=== PATIENT | female | born 1960 | race African-American/Black ===

== ENCOUNTER 2016-12-23 15:34 | Emergency (ER) | payer MEDICAID ==
[~2016-12-23] VITALS: Ht 154.9 cm; Wt 55.0 kg
[~2016-12-23 15:34] MED LIST: ALPR0.5T96 PO; AMLO2.5T45 PO; Aspirin PO; Benazepril Hcl PO; Folic Acid PO; Multivitamins,Ther W-Minerals PO; Thiamine Hcl PO
[2016-12-23] MEDS ORDERED: KETOROLAC 60MG/2ML VIAL IM ONE (18:30)
[2016-12-23 20:35] VITALS: BP 139/77
== END 2016-12-23 21:05 | disposition home or self-care (01) ==
LOC: ER 15:35
DX: S09.90XA Unspecified injury of head, initial encounter (principal); I10 Essential (primary) hypertension; Z86.73 Personal history of transient ischemic attack (TIA), and cerebral infarction without residual deficits; W01.0XXA Fall on same level from slipping, tripping and stumbling without subsequent striking against object, initial encounter; Y93.89 Activity, other specified; Y92.488 Other paved roadways as the place of occurrence of the external cause
CPT/HCPCS: 96372; 99283; J1885; Z7610

== ENCOUNTER 2017-04-10 14:57 | Inpatient (IN) | payer MEDICAID ==
[~2017-04-10] VITALS: Ht 160 cm; Wt 60.3 kg
[2017-04-10] MEDS ORDERED: SODIUM CHLORIDE 0.9% 1,000 ML IV ONE (15:15)
[2017-04-10 15:43] LABS: CHLORIDE 105 mEq/L (98-107)
[2017-04-10 15:45] LABS: BASOPHILS % 0.5 % (0.0-2.0); EOSINOPHILS % 1.6 % (0.0-5.0); HEMOGLOBIN. 11.1 g/dL (12.0-16.0); LYMPHOCYTES % 36.3 % (20.0-50.0); MEAN CORPUSCULAR HEMOGLOBIN 27.6 pg (28.0-32.0); MEAN CORPUSCULAR VOLUME 81.7 fL (81.0-99.0); MEAN PLATELET VOLUME 7.8 fl (7.4-10.4); MONOCYTES % 7.8 % (2.0-8.0); NEUTROPHILS % 53.8 % (40.0-76.0); PLATELET 219 x1000/uL (130-400); RED BLOOD CELL COUNT 4.04 mill/uL (4.2-5.4); RED CELL DISTRIBUTION WIDTH 13.9 % (11.6-14.6)
[2017-04-10 15:46] LABS: INR 1.1; PARTIAL THROMBOPLASTIN TIME 27.1 sec (24.0-34.0); PROTHROMBIN TIME 11.4 sec
[2017-04-10 15:55] LABS: CARBON DIOXIDE 32 mEq/L (21-32); CREATINE KINASE MB FRACTION 3.7 ng/mL (0.5-3.6); TROPONIN I 0.09 ng/mL (0.00-0.04)
[2017-04-10] MEDS ORDERED: POTASSIUM CHLORIDE 20MEQ TABLET SR PO ONE (16:15)
[2017-04-10] MEDS ORDERED: ASPIRIN 81MG TABLET PO ONE (20:30)
[2017-04-10] MEDS ORDERED: HYDROCODONE/ACETAMINOPHEN 5/325MG TABLET PO ONE (20:45)
[2017-04-10 22:30] VITALS: BP 97/62
[2017-04-11] VITALS (7 sets, daily range): BP systolic 84–132; BP diastolic 49–80
[2017-04-11] MEDS: HYDROCODONE/ACETAMINOPHEN 5/325MG TABLET PO PRN ×3 (04:16→17:17)
[2017-04-11] MEDS: ALPRAZOLAM 0.5 MG TABLET PO PRN ×2 (04:21→14:15)
[2017-04-11] MEDS: MULTIVITAMINS,THER W-MINERALS TABLET PO SCH (08:49)
[2017-04-11] MEDS: BENAZEPRIL 20MG TABLET PO SCH (08:49)
[2017-04-11] MEDS ORDERED: [UNRECOGNIZED DRUG - OTHER] PO SCH (09:00)
[2017-04-11] MEDS ORDERED: [UNRECOGNIZED DRUG - OTHER] PO SCH (09:00)
[2017-04-11] MEDS: CLOTRIMAZOLE 1% VAGINAL CREAM 45GM VG SCH (21:13)
[2017-04-12] VITALS (7 sets, daily range): BP systolic 100–149; BP diastolic 52–89
[2017-04-12] MEDS: ALPRAZOLAM 0.5 MG TABLET PO PRN ×2 (00:46→10:16)
[2017-04-12] MEDS: HYDROCODONE/ACETAMINOPHEN 5/325MG TABLET PO PRN ×3 (00:47→17:04)
[2017-04-12 06:53] LABS: BASOPHILS % 0.7 % (0.0-2.0); EOSINOPHILS % 7.3 % (0.0-5.0); HEMATOCRIT. 29.8 % (36.0-48.0); HEMOGLOBIN. 9.9 g/dL (12.0-16.0); MEAN CORPUSCULAR HEMOGLOBIN 27.3 pg (28.0-32.0); MEAN CORPUSCULAR VOLUME 82.1 fL (81.0-99.0); MEAN PLATELET VOLUME 8.1 fl (7.4-10.4); MONOCYTES % 4.7 % (2.0-8.0); NEUTROPHILS % 25.3 % (40.0-76.0); PLATELET 217 x1000/uL (130-400); RED BLOOD CELL COUNT 3.63 mill/uL (4.2-5.4); RED CELL DISTRIBUTION WIDTH 13.8 % (11.6-14.6)
[2017-04-12 07:31] LABS: CARBON DIOXIDE 33 mEq/L (21-32); CHLORIDE 108 mEq/L (98-107)
[2017-04-12] MEDS: MULTIVITAMINS,THER W-MINERALS TABLET PO SCH (08:05)
[2017-04-12] MEDS: BENAZEPRIL 20MG TABLET PO SCH (08:06)
[2017-04-12] MEDS: CLOTRIMAZOLE 1% VAGINAL CREAM 45GM VG SCH (20:43)
[2017-04-13] VITALS (7 sets, daily range): BP systolic 102–147; BP diastolic 45–88
[2017-04-13] MEDS: ALPRAZOLAM 0.5 MG TABLET PO PRN ×3 (07:55→23:42)
[2017-04-13] MEDS: HYDROCODONE/ACETAMINOPHEN 5/325MG TABLET PO PRN ×4 (07:55→21:15)
[2017-04-13] MEDS: BENAZEPRIL 20MG TABLET PO SCH (08:00)
[2017-04-13] MEDS: MULTIVITAMINS,THER W-MINERALS TABLET PO SCH (08:00)
[2017-04-13] MEDS: CLOTRIMAZOLE 1% VAGINAL CREAM 45GM VG SCH (20:59)
[2017-04-14] VITALS: BP 118/50
[2017-04-14] MEDS: HYDROCODONE/ACETAMINOPHEN 5/325MG TABLET PO PRN ×3 (06:52→20:46)
[2017-04-14 07:47] VITALS: BP 132/70
[2017-04-14] MEDS: ALPRAZOLAM 0.5 MG TABLET PO PRN ×2 (08:50→17:36)
[2017-04-14] MEDS: BENAZEPRIL 20MG TABLET PO SCH (10:02)
[2017-04-14] MEDS: MULTIVITAMINS,THER W-MINERALS TABLET PO SCH (10:02)
[2017-04-14 12:04] VITALS: BP 100/77
[2017-04-14 16:00] VITALS: BP 110/67
[2017-04-14 20:00] VITALS: BP_SYST 100; BP_SYST 127; BP_DIAS 49; BP_DIAS 59
[2017-04-14 20:46] VITALS: BP 127/59
[2017-04-14] MEDS: CLOTRIMAZOLE 1% VAGINAL CREAM 45GM VG SCH (20:46)
[2017-04-15] VITALS: BP_SYST 101; BP_SYST 139; BP_DIAS 58; BP_DIAS 79
[2017-04-15 04:05] VITALS: BP 123/61
[2017-04-15 08:00] VITALS: BP 143/94
[2017-04-15] MEDS: ALPRAZOLAM 0.5 MG TABLET PO PRN ×2 (08:33→17:16)
[2017-04-15] MEDS: MULTIVITAMINS,THER W-MINERALS TABLET PO SCH (08:33)
[2017-04-15] MEDS: HYDROCODONE/ACETAMINOPHEN 5/325MG TABLET PO PRN ×3 (08:34→20:01)
[2017-04-15] MEDS: BENAZEPRIL 20MG TABLET PO SCH (08:34)
[2017-04-15 12:00] VITALS: BP 107/80
[2017-04-15 16:00] VITALS: BP 100/60
[2017-04-15 20:00] VITALS: BP 105/66
[2017-04-15] MEDS: CLOTRIMAZOLE 1% VAGINAL CREAM 45GM VG SCH (20:55)
[2017-04-16] VITALS: BP 115/63
[2017-04-16 04:00] VITALS: BP 103/58
[2017-04-16 08:00] VITALS: BP 135/61
[2017-04-16] MEDS: BENAZEPRIL 20MG TABLET PO SCH (08:39)
[2017-04-16] MEDS: MULTIVITAMINS,THER W-MINERALS TABLET PO SCH (08:39)
[2017-04-16 12:00] VITALS: BP 92/42
[2017-04-16] MEDS ORDERED: ALPRAZOLAM 0.5 MG TABLET PO PRN (12:00)
[2017-04-16 16:00] VITALS: BP 112/58
[2017-04-16] MEDS: HYDROCODONE/ACETAMINOPHEN 5/325MG TABLET PO PRN (16:01)
[2017-04-16 20:53] VITALS: BP 133/63
[2017-04-16] MEDS: CLOTRIMAZOLE 1% VAGINAL CREAM 45GM VG SCH (22:09)
[2017-04-17 00:01] VITALS: BP 142/78
[2017-04-17 04:00] VITALS: BP 138/85
[2017-04-17 07:57] VITALS: BP 139/65
[2017-04-17] MEDS: HYDROCODONE/ACETAMINOPHEN 5/325MG TABLET PO PRN ×2 (08:13→12:05)
[2017-04-17] MEDS: BENAZEPRIL 20MG TABLET PO SCH (08:13)
[2017-04-17] MEDS: MULTIVITAMINS,THER W-MINERALS TABLET PO SCH (08:14)
[2017-04-17 12:05] VITALS: BP 134/86
[2017-04-17] MEDS ORDERED: AZITHROMYCIN 500 MG TABLET PO SCH (13:45)
[2017-04-17] MEDS ORDERED: CEFTRIAXONE SODIUM 250 MG/VIAL IM SCH (15:00)
[2017-04-19 19:10] LABS: CHLAMYDIA TRACHOMATIS NAA Negative (Negative); NEISSERIA GONORRHOEAE NAA Negative (Negative)
== END 2017-04-17 14:20 | disposition home or self-care (01) | DRG 48 ==
LOC: ER 15:05 → 6WST 16:02 → EDBEDREQTM 16:05 → EDBEDREQ 16:05 → ENRESERV 20:12
PROVIDERS: ADMIT Internal Medicine; ATTEND Internal Medicine
DX: G90.8 Other disorders of autonomic nervous system (principal); E44.1 Mild protein-calorie malnutrition; I95.9 Hypotension, unspecified; I10 Essential (primary) hypertension; E78.5 Hyperlipidemia, unspecified; E87.6 Hypokalemia; N76.0 Acute vaginitis; F41.9 Anxiety disorder, unspecified; D64.9 Anemia, unspecified; Z59.0 Homelessness; Z79.82 Long term (current) use of aspirin; Z87.891 Personal history of nicotine dependence; I69.354 Hemiplegia and hemiparesis following cerebral infarction affecting left non-dominant side; Z68.23 Body mass index [BMI] 23.0-23.9, adult; Z79.899 Other long term (current) drug therapy
CPT/HCPCS: 36415; 70450; 71010; 80048; 80053; 82553; 83735; 83880; 84484; 85025; 85610; 85730; 87210; 87491; 87591; 93005; 93306; 96360; 96361; 99285; J0696; J7030

== ENCOUNTER 2017-04-24 18:52 | Emergency (ER) | payer MEDICAID ==
[~2017-04-24] VITALS: Ht 160 cm; Wt 58.0 kg
[2017-04-24 19:01] VITALS: BP 104/66
== END 2017-04-24 22:29 | disposition left against medical advice (07) ==
LOC: ER 20:31
DX: Z53.21 Procedure and treatment not carried out due to patient leaving prior to being seen by health care provider (principal)

== ENCOUNTER 2017-12-20 12:29 | Emergency (ER) | payer MEDICAID ==
[~2017-12-20] VITALS: Ht 167.6 cm; Wt 59.0 kg
[~2017-12-20 12:29] MED LIST changes: +ALPR0.5T PO; -ALPR0.5T96 PO
[2017-12-20] MEDS ORDERED: SODIUM CHLORIDE 0.9% 1,000 ML IV ONE ×2 (12:40→18:37)
[2017-12-20 13:01] LABS: BASOPHILS % 0.7 % (0.0-2.0); EOSINOPHILS % 4.2 % (0.0-5.0); HEMATOCRIT. 34.3 % (36.0-48.0); HEMOGLOBIN. 11.1 g/dL (12.0-16.0); LYMPHOCYTES % 39.8 % (20.0-50.0); MEAN CORPUSCULAR HEMOGLOBIN 26.9 pg (28.0-32.0); MEAN CORPUSCULAR VOLUME 83.3 fL (81.0-99.0); MEAN PLATELET VOLUME 7.8 fl (7.4-10.4); NEUTROPHILS % 50.3 % (40.0-76.0); PLATELET 288 x1000/uL (130-400); RED BLOOD CELL COUNT 4.11 mill/uL (4.2-5.4); RED CELL DISTRIBUTION WIDTH 14.2 % (11.6-14.6)
[2017-12-20 13:07] LABS: CHLORIDE 107 mEq/L (98-107)
[2017-12-20 13:11] LABS: ETHANOL BLOOD < 10 mg/dL
[2017-12-20 13:13] LABS: HCG SCREEN NEGATIVE
[2017-12-20 13:21] LABS: AMMONIA < 10 uMol/L (<32)
[2017-12-20 16:44] LABS: CLARITY URINE CLEAR (CLEAR); COLOR URINE YELLOW (YELLOW); KETONES URINE NEGATIVE (NEGATIVE); LEUKOCYTE ESTERASE URINE 2+ (NEGATIVE); NITRITE URINE POSITIVE (NEGATIVE); OCCULT BLOOD URINE 1+ (NEGATIVE); PH URINE 5.5 (4.5-8.0); PROTEIN URINE NEGATIVE (NEGATIVE); SPECIFIC GRAVITY URINE 1.009 (1.005-1.030); UROBILINOGEN URINE 0.2 E.U./dL (0.2-1.0)
[2017-12-20 17:07] LABS: *BARBITURATES SCREEN URINE NEGATIVE (NEGATIVE)
[2017-12-20 17:08] LABS: *AMPHETAMINES SCREEN URINE NEGATIVE (NEGATIVE); *BENZODIAZEPINES SCREEN URINE PRESUMTIVE POSITIVE (NEGATIVE); *COCAINE SCREEN URINE NEGATIVE (NEGATIVE); METHADONE URINE SCREEN NEGATIVE (NEGATIVE); OPIATES URINE SCREEN PRESUMTIVE POSITIVE (NEGATIVE)
[2017-12-20 17:09] LABS: CANNABINOID URINE SCREEN NEGATIVE (NEGATIVE); PHENCYCLIDINE URINE SCREEN NEGATIVE (NEGATIVE)
[2017-12-20] MEDS ORDERED: CEFTRIAXONE 1 G PREMIX 50 ML IV ONE (18:30)
[2017-12-20] MEDS ORDERED: DEXT 5%/0.45% NACL 1000ML 1,000 ML IV ONE (18:37)
[2017-12-20 22:58] VITALS: BP 117/56
== END 2017-12-20 23:01 | disposition home or self-care (01) ==
LOC: ER 12:29
DX: N39.0 Urinary tract infection, site not specified (principal); T65.91XA Toxic effect of unspecified substance, accidental (unintentional), initial encounter; F11.10 Opioid abuse, uncomplicated; F13.10 Sedative, hypnotic or anxiolytic abuse, uncomplicated; F41.9 Anxiety disorder, unspecified; I95.1 Orthostatic hypotension; I10 Essential (primary) hypertension; D64.9 Anemia, unspecified; Z79.82 Long term (current) use of aspirin; Z86.73 Personal history of transient ischemic attack (TIA), and cerebral infarction without residual deficits; E86.0 Dehydration; Y92.89 Other specified places as the place of occurrence of the external cause
CPT/HCPCS: 36415; 70450; 71045; 80053; 80305; 80307; 80329; 81003; 82140; 82962; 84703; 85025; 96361; 96365; 99285; G0482; J0696; J3490; J7030